=== PATIENT | male | born 1945 | race Caucasian/White ===

== ENCOUNTER 2025-02-01 20:33 | Inpatient (IN) | payer BC, OTHER ==
[~2025-02-01] VITALS: Ht 172.7 cm; Wt 71.0 kg
[2025-02-01] MEDS: ACETAMINOPHEN *IV* 1,000 MG in IV 1 EA IV ONE (22:07)
[2025-02-01 22:11] LABS: BASO # 0.0 10^3/uL (0.0-0.2); BASO % 0.3 % (0.0-1.0); EOS # 0.0 10^3/uL (0.0-0.5); EOS % 0.3 % (0.0-3.0); LYMPH # 0.7 10^3/uL (1.5-5.0); LYMPH % 18.7 % (24.0-44.0); MONO # 0.9 10^3/uL (0.0-0.8); MONO % 22.8 % (2.0-8.0); NEUTROPHILS # 2.2 10^3/uL (1.5-8.5); NEUTROPHILS % 56.9 % (36.0-66.0); PLATELET COUNT, AUTOMATED 120 10^3/uL (150-450)
[2025-02-01 22:23] VITALS: O2SAT 92
[2025-02-01] MEDS: NS 500 ML IV ONE (22:39)
[2025-02-01 23:12] LABS: CALCIUM LEVEL 8.6 MG/DL (8.3-10.6); CARBON DIOXIDE LEVEL 26 MMOL/L (20-31); CHLORIDE LEVEL 105 MMOL/L (98-107); CK-MB VALUE MASS < 1.0 NG/ML (<3.6); CPK CREATINE PHOSPHOKINASE 118 U/L (46-171); CREATININE FOR GFR 1.48 MG/DL (0.70-1.30); GLOMERULAR FILTRATION RATE 47.5 (>35); MAGNESIUM LEVEL 1.9 MG/DL (1.8-2.4); POTASSIUM SERUM 4.6 MMOL/L (3.5-5.1); SODIUM LEVEL 143 MMOL/L (136-145)
[2025-02-01] MEDS: NS (Normal Saline) 0.9% 1,000 ML IV ONE (23:40)
[2025-02-02] MEDS ORDERED: ISOVUE-370 76% 100 ML VIAL As Ordered ONE (00:13)
[2025-02-02 00:33] LABS: KETONE, URINE AUTO RFX NEGATIVE (NEGATIVE); LEUKOCYTE ESTERASE UR AUTO RFX NEGATIVE (NEGATIVE); MUCUS, URINE RFX SMALL (NEGATIVE); NITRITE, URINE AUTO RFX NEGATIVE (NEGATIVE); RBC, URINE AUTO RFX 3 /HPF (0-3); SQUAM EPITHELIAL CELL UR AURFX 0 /HPF (0-6); WBC, URINE AUTO RFX 2 /HPF (0-3)
[2025-02-02] MEDS ORDERED: HEPARIN DRIP 25,000 UNITS in IV 1 EA IV SCH (01:20)
[2025-02-02] MEDS ORDERED: HEPARIN SOD 5000 UNITS/ML 1 ML VIAL/SYRINGE IV PRN ×2 (01:20→01:55)
[2025-02-02] MEDS ORDERED: RIVAROXABAN 15MG TAB PO ONE ×2 (01:35→01:40)
[2025-02-02] MEDS ORDERED: LEVO50TA5 PO (02:10)
[2025-02-02] MEDS ORDERED: COQ1200C3 PO (02:10)
[2025-02-02] MEDS ORDERED: MEMA1TAB3 PO (02:10)
[2025-02-02] MEDS ORDERED: MULTCHW14 PO (02:10)
[2025-02-02] MEDS ORDERED: CINN500C2 PO (02:10)
[2025-02-02] MEDS ORDERED: CURC500C2 PO (02:10)
[2025-02-02] MEDS ORDERED: PREVAGEN PO (02:10)
[2025-02-02] MEDS ORDERED: VITA1TAB61 PO (02:11)
[2025-02-02] MEDS ORDERED: HOME MED LIST COMPLETE! XX SCH (02:15)
[2025-02-02] MEDS: HEPARIN SOD 5000 UNITS/ML 1 ML VIAL/SYRINGE IV ONE (02:58)
[2025-02-02] MEDS: HEPARIN DRIP 25,000 UNITS in IV 1 EA IV SCH (03:01)
[2025-02-02 03:07] LABS: INR 1.05
[2025-02-02] MEDS ORDERED: ACETAMINOPHEN 325 MG TAB PO PRN (03:25)
[2025-02-02] MEDS: REMDESIVIR 200 MG in NS 250 ML IV ONE (03:30)
[2025-02-02 04:24] LABS: ALT/SGPT 20 U/L (7.0-40); AST/SGOT 35 U/L (<34)
[2025-02-02] MEDS: cefTRIAXone SOD 2 GM in DEXTROSE 5% (D5W) ADV/MINI-BAG 50 ML IV SCH (04:52)
[2025-02-02] MEDS: LEVOTHYROXINE 50 MCG TABLET (0.05 MG) PO SCH (06:56)
[2025-02-02] MEDS: IPRATROPIUM 0.5 MG/ALBUTEROL 2.5 MG INH SOL UD 3 ML NEB SCH (07:11)
[2025-02-02 07:24] LABS: PLATELET COUNT, AUTOMATED 106 10^3/uL (150-450)
[2025-02-02] MEDS: LR 1,000 ML IV SCH (07:59)
[2025-02-02 08:25] LABS: CALCIUM LEVEL 7.2 MG/DL (8.3-10.6); CARBON DIOXIDE LEVEL 21.0 MMOL/L (20-31); CHLORIDE LEVEL 110.0 MMOL/L (98-107); CREATININE FOR GFR 1.15 MG/DL (0.70-1.30); GLOMERULAR FILTRATION RATE 64.3 (>35); POTASSIUM SERUM 3.9 MMOL/L (3.5-5.1); SODIUM LEVEL 144.0 MMOL/L (136-145)
[2025-02-02] MEDS: ASPIRIN 81 MG CHEWABLE TABLET PO SCH (08:47)
[2025-02-02] MEDS: MEMANTINE 5 MG TABLET PO SCH (08:48)
[2025-02-02] MEDS: CO-ENZYME Q10 50 MG CAP PO SCH (08:48)
[2025-02-02 09:41] LABS: INR 1.08
[2025-02-02 13:25] VITALS: BP 124/61; TEMP 98.1; O2SAT 97
[2025-02-02] MEDS: PANTOPRAZOLE 40MG TAB PO SCH (15:52)
[2025-02-02 16:00] VITALS: BP 101/55; TEMP 98.6; O2SAT 94
[2025-02-02] MEDS: APIXABAN 5 MG TAB PO SCH (16:00)
[2025-02-02 20:00] VITALS: BP 102/56; TEMP 98.6; O2SAT 98
[2025-02-03] VITALS (7 sets, daily range): BP systolic 108–140; BP diastolic 60–66; TEMP 97.5–98.2; O2SAT 92–99
[2025-02-03 07:04] LABS: CALCIUM LEVEL 8.1 MG/DL (8.3-10.6); CARBON DIOXIDE LEVEL 24.0 MMOL/L (20-31); CHLORIDE LEVEL 109.0 MMOL/L (98-107); CREATININE FOR GFR 1.08 MG/DL (0.70-1.30); GLOMERULAR FILTRATION RATE 69.4 (>35); POTASSIUM SERUM 3.8 MMOL/L (3.5-5.1); SODIUM LEVEL 145.0 MMOL/L (136-145)
[2025-02-03 12:27] LABS: INR 1.29
[2025-02-04 03:46] VITALS: BP 139/76; TEMP 97.9; O2SAT 98
[2025-02-04 07:20] LABS: CALCIUM LEVEL 8.3 MG/DL (8.3-10.6); CARBON DIOXIDE LEVEL 26.0 MMOL/L (20-31); CHLORIDE LEVEL 109.0 MMOL/L (98-107); CREATININE FOR GFR 1.03 MG/DL (0.70-1.30); GLOMERULAR FILTRATION RATE 73.4 (>35); POTASSIUM SERUM 3.6 MMOL/L (3.5-5.1); SODIUM LEVEL 147.0 MMOL/L (136-145)
[2025-02-04] MEDS: D5W 1,000 ML IV SCH (11:26)
[2025-02-04 12:00] VITALS: BP 117/62; TEMP 97.9; O2SAT 95
[2025-02-04] MEDS ORDERED: ELIQ5TAB PO (13:25)
[2025-02-04 13:42] LABS: CALCIUM LEVEL 8.1 MG/DL (8.3-10.6); CARBON DIOXIDE LEVEL 25.0 MMOL/L (20-31); CHLORIDE LEVEL 108.0 MMOL/L (98-107); CREATININE FOR GFR 0.92 MG/DL (0.70-1.30); GLOMERULAR FILTRATION RATE 84.1 (>35); POTASSIUM SERUM 3.8 MMOL/L (3.5-5.1); SODIUM LEVEL 144.0 MMOL/L (136-145)
[2025-02-09] MEDS ORDERED: APIXABAN 5 MG TAB PO SCH (09:00)
== END 2025-02-04 15:55 | disposition home or self-care (01) | DRG 177 ==
LOC: M ED 20:33 → M ED INP 20:34 → M MSPAV 02-02 13:24 → OBSVTOIN 02-02 18:09
PROVIDERS: ADMIT Student in an Organized Health Care Education/Training Program; ATTEND Student in an Organized Health Care Education/Training Program
PROC: XW033E5 Introduction of Remdesivir Anti-infective into Peripheral Vein, Percutaneous Approach, New Technology Group 5 (ICD-10-PCS; principal; 2025-02-02)
PROC: B246ZZZ Ultrasonography of Right and Left Heart (ICD-10-PCS; 2025-02-03)
DX: U07.1 COVID-19 (principal); I26.99 Other pulmonary embolism without acute cor pulmonale; G93.41 Metabolic encephalopathy; N17.9 Acute kidney failure, unspecified; F01.50 Vascular dementia, unspecified severity, without behavioral disturbance, psychotic disturbance, mood disturbance, and anxiety; E03.9 Hypothyroidism, unspecified; J43.9 Emphysema, unspecified; R53.1 Weakness; R09.02 Hypoxemia; D69.6 Thrombocytopenia, unspecified; Z79.890 Hormone replacement therapy; Z79.899 Other long term (current) drug therapy; Z86.718 Personal history of other venous thrombosis and embolism; Z86.73 Personal history of transient ischemic attack (TIA), and cerebral infarction without residual deficits; Z87.891 Personal history of nicotine dependence